=== PATIENT | female | born 1965 | race Two or more races ===

== ENCOUNTER 2017-01-08 12:17 | Day surgery (SDC) | payer OTHER ==
[~2017-01-08 12:17] MED LIST: ACETAMINOPHEN 1,000 MG/100 ML 100 ML IV ONE; CELECOXIB 100 MG CAPSULE PO ONE; ceFAZolin 2 GM/50 ML 50 ML IV ONE
[2017-01-08] MEDS ORDERED: LACTATED RINGERS 1,000 ML IV ONE ×3 (13:11→19:19)
[2017-01-08] MEDS ORDERED: MIDAZOLAM 2 MG/2 ML VIAL IVP ONE (14:25)
[2017-01-08] MEDS ORDERED: MORPHINE PF 5 MG/10 ML AMP EP ONE (14:25)
[2017-01-08] MEDS ORDERED: ONDANSETRON 4 MG/2 ML VIAL IVP ONE (14:25)
[2017-01-08] MEDS ORDERED: fentaNYL 100 MCG/2 ML VIAL IVP ONE (14:25)
[2017-01-08] MEDS ORDERED: ACETAMINOPHEN 1,000 MG/100 ML VIAL IV ONE (14:25)
[2017-01-08] MEDS ORDERED: DEXAMETHASONE 4 MG/ML VIAL IVP ONE (14:25)
[2017-01-08] MEDS ORDERED: MORPHINE PF 5 MG/10 ML AMP EPI ONE (15:05)
[2017-01-08] MEDS ORDERED: ROPIVACAINE 0.2% PF 10 ML VIAL EPI ONE (15:05)
[2017-01-08] MEDS ORDERED: BUPIVACAINE 0.5% PF 10 ML VIAL IM ONE (15:05)
[2017-01-08] MEDS ORDERED: oxyCOD/ACETAMIN 5 MG/325 MG TABLET PO ONE ×2 (16:15→18:58)
[2017-01-08] MEDS ORDERED: oxyCOD/ACETAMIN 5 MG/325 MG TABLET PO PRN (19:38)
[2017-01-08] MEDS ORDERED: ONDANSETRON 4 MG/2 ML VIAL IVP PRN (19:38)
== END 2017-01-08 21:55 | disposition home or self-care (01) ==
PROC: 0SQD4ZZ Repair Left Knee Joint, Percutaneous Endoscopic Approach (ICD-10-PCS; 2017-01-08)
PROC: 0SBD4ZZ Excision of Left Knee Joint, Percutaneous Endoscopic Approach (ICD-10-PCS; principal; 2017-01-08 13:30)
DX: M94.262 Chondromalacia, left knee (principal)
CPT/HCPCS: 29879; 29999; 81025; A9270; J0131; J0690; J7120